=== PATIENT | male | born 1955 | race African-American/Black ===

== ENCOUNTER 2019-05-16 14:27 | Emergency (ER) | payer SELFPAY ==
[~2019-05-16] VITALS: Ht 175.3 cm; Wt 93.0 kg
[2019-05-16 15:04] VITALS: BP 121/82
== END 2019-05-16 18:58 | disposition home or self-care (01) ==
LOC: EDSEX 14:27 → ED 18:45
DX: L03.113 Cellulitis of right upper limb (principal)
CPT/HCPCS: 36415; 80048; 85025; 99284